=== PATIENT | female | born 1940 ===

== ENCOUNTER 2020-09-23 06:00 | Day surgery (SDC) | payer OTHER ==
[~2020-09-23 06:00] MED LIST: COZAAR50 MG PO; ECOTRIN81 MG PO; HYDRALAZINE HCL50 MG PO; LEVO-T50 MCG PO; TOPROL XL50 M1 PO
== END 2020-09-23 20:41 | disposition home or self-care (01) ==
LOC: CIR.AMB 06:00
PROVIDERS: ATTEND Student in an Organized Health Care Education/Training Program
DX: N39.41 Urge incontinence (principal); R15.9 Full incontinence of feces; Z20.828 Contact with and (suspected) exposure to other viral communicable diseases
CPT/HCPCS: 64590; 64581; 95972; C1778; L8679